=== PATIENT | female | born 1995 | race Caucasian/White ===

== ENCOUNTER 2017-03-15 18:38 | Emergency (ER) | payer OTHER ==
[2017-03-15 18:39] VITALS: BMI 21.4
[2017-03-15 18:52] VITALS: BP 116/72; PULSE 82; RESP 18; TEMP 98.8; O2SAT 97
--- NOTE | 2017-03-15 19:38 | ED PDOC ---
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 Patient states she usually gets a headache every "week to 10 days" for the past 15 years. She says this headache is similar to previous episodes but has lasted longer. She also co swelling upper lip since she tripped and fell on the stairs yesterday and hit her face on a wall. This occurred after her headache had already started. No LOC at that time. Patient denies any fever, chills, nausea, vomiting or other complaints. Patient mentions she sometimes take Ibuprofen for the pain but she tries not to take it so often due to her Hepatitis. HPI and ROS obtain via mushroom packer number [id number]. PMD: Dr. Villa Time/Duration: 24 hours Symptom Onset: Sudden Symptom Course: Unchanged Quality: Other Activities at Onset: Rest Context: Home Past Medical History - Provider Review Nursing Documentation Reviewed: Yes - Infectious Disease Hx of Infectious Diseases: None - Hematological/Oncological Hx Hepatitis C: Yes - Psychiatric Hx Substance Use: No - Surgical History Hx Appendectomy: Yes - Anesthesia Hx Anesthesia: Yes Hx Anesthesia Reactions: No Hx Malignant Hyperthermia: No Family/Social History - Physician Review Nursing Documentation Reviewed: Yes Family/Social History: Unknown Family HX Smoking Status: Never Smoked Hx Alcohol Use: No Hx Substance Use: No Allergies/Home Meds Allergies/Adverse Reactions: Allergies No Known Allergies Allergy (Verified 03/15/17 18:51) Home Medications: Home Meds Medication Instructions Recorded Confirmed No Known Home Med 03/15/17 03/15/17 Review of Systems - Physician Review All systems were reviewed & negative as marked: Yes - Review of Systems Constitutional: absent: Fevers ENT: Other (small abrasion to the inner upper lip) Respiratory: absent: SOB Cardiovascular: absent: Chest Pain Neurological: Headache Physical Exam Vital Signs Reviewed: Yes Vital Signs Temp Pulse Resp BP Pulse Ox 03/15/17 18:48 98.8 F 82 18 116/72 97 Temperature: Afebrile Blood Pressure: Normal Pulse: Regular Respiratory Rate: Normal Appearance: Positive for: Well-Appearing, Non-Toxic, Comfortable Pain Distress: None Mental Status: Positive for: Alert and Oriented X 3 - Systems Exam Head: Present: Atraumatic, Normocephalic Pupils: Present: PERRL Extroacular Muscles: Present: EOMI Conjunctiva: Present: Normal Mouth: Present: Moist Mucous Membranes. No: Normal Lips (superfical abrasion to the mucosal surface of the upper lip with mild swelling) Neck: Present: Normal Range of Motion Respiratory/Chest: Present: Clear to Auscultation, Good Air Exchange. No: Respiratory Distress, Accessory Muscle Use Cardiovascular: Present: Regular Rate and Rhythm, Normal S1, S2. No: Murmurs Abdomen: Present: Normal Bowel Sounds. No: Tenderness, Distention, Peritoneal Signs Back: Present: Normal Inspection Upper Extremity: Present: Normal Inspection. No: Cyanosis, Edema Lower Extremity: Present: Normal Inspection. No: Edema Neurological: Present: GCS=15, CN II-XII Intact, Motor Func Grossly Intact, Normal Sensory Function, Gait Normal Skin: Present: Warm, Dry, Normal Color. No: Rashes Psychiatric: Present: Alert, Oriented x 3 Medical Decision Making ED Course and Treatment: 03/15/17 21:49 the pt reports resolution of her headache. she is comfortable w dc home. follow up and return precautions advised. - Medication Orders Current Medication Orders: Discontinued Medications Diphenhydramine HCl (Benadryl) 50 mg IVP STAT STA Stop: 03/15/17 19:45 Last Admin: 03/15/17 20:23 Dose: 50 mg Sodium Chloride (Sodium Chloride 0.9%) 1,000 mls @ 999 mls/hr IV .Q1H1M STA Stop: 03/15/17 21:25 Last Admin: 03/15/17 20:35 Dose: 999 mls/hr Metoclopramide HCl (Reglan) 10 mg IVP STAT STA Stop: 03/15/17 19:45 Last Admin: 03/15/17 20:23 Dose: 10 mg - Scribe Statement The provider has reviewed the documentation as recorded by the Arturo Abraham Provider Scribe Attestation: All medical record entries made by the Mitaibnoah were at my direction and personally dictated by me. I have reviewed the chart and agree that the record accurately reflects my personal performance of the history, physical exam, medical decision making, and the department course for this patient. I have also personally directed, reviewed, and agree with the discharge instructions and disposition. Disposition/Present on Arrival - Present on Arrival Any Indicators Present on Arrival: No History of DVT/PE: No History of Uncontrolled Diabetes: No Urinary Catheter: No History of Decub. Ulcer: No History Surgical Site Infection Following: None - Disposition Have Diagnosis and Disposition been Completed?: Yes Diagnosis: Headache Disposition: HOME/ ROUTINE Disposition Time: 21:49 Condition: IMPROVED Discharge Instructions (ExitCare): Migraine Headache (ED), Acute Headache (ED) Additional Instructions: Please follow up with your primary doctor in the next week. Return to the ER for any worsening symptoms or for any other concerns. Referrals: Ondina Villa MD [Primary Care Provider] - Follow up with primary
[2017-03-15] MEDS ORDERED: DiphenhydrAMINE 50 mg/ml Inj IVP STA (19:44)
[2017-03-15] MEDS ORDERED: Sodium Chloride 0.9% 1,000 ML IV STA (20:25)
== END 2017-03-15 21:56 | disposition home or self-care (01) ==
LOC: ED 18:38
DX: R51 Headache (principal)
CPT/HCPCS: 96361; 96374; 96375; 99285; J1200; J2765; J7040

== ENCOUNTER 2017-06-27 19:48 | Emergency (ER) | payer SELFPAY ==
[2017-06-27 19:48] VITALS: BMI 21.4
[2017-06-27 20:05] VITALS: RESP 18; TEMP 98.4; O2SAT 100
[2017-06-27] MEDS ORDERED: Sodium Chloride 0.9% 1,000 ML IV STA (20:21)
--- NOTE | 2017-06-27 20:35 | ED PDOC ---
Arrival/HPI - General Chief Complaint: Abdominal Pain Time Seen by Provider: 06/27/17 20:07 Historian: Patient, Family - History of Present Illness Narrative History of Present Illness (Text): 06/27/17 20:32 Pt. to ED PMHX appendectomy,Hepatitis C with c/o right flank discomfort with some radiation to the abdomen.Pt.; with similar episode in the pt. which resolved spontaneously.No c/o of N/V/D. [place] vaginal discharge.No urinary complaints.No fever or chills.Family helped with the translation assisting the pt. who understands but speaks mediocre German. Past Medical History - Provider Review Nursing Documentation Reviewed: Yes - Travel History Have you recently traveled outside [place] w/in the past 3 mons?: No - Infectious Disease Hx of Infectious Diseases: None - Hematological/Oncological Hx Hepatitis C: Yes - Psychiatric Hx Substance Use: No - Surgical History Hx Appendectomy: Yes - Anesthesia Hx Anesthesia: Yes Hx Anesthesia Reactions: No Hx Malignant Hyperthermia: No Family/Social History - Physician Review Nursing Documentation Reviewed: Yes Family/Social History: No Known Family HX Smoking Status: Never Smoked Hx Alcohol Use: No Hx Substance Use: No Allergies/Home Meds Allergies/Adverse Reactions: Allergies No Known Allergies Allergy (Verified 06/27/17 20:01) Home Medications: Home Meds Medication Instructions Recorded Confirmed No Known Home Med 03/15/17 06/27/17 Review of Systems - Review of Systems Constitutional: Normal Eyes: Normal ENT: Normal Respiratory: Normal Cardiovascular: Normal Gastrointestinal: Abdominal Pain Genitourinary Female: Normal Musculoskeletal: Normal Skin: Normal Neurological: Normal Endocrine: Normal Hemo/Lymphatic: Normal Psychiatric: Normal Physical Exam Vital Signs Reviewed: Yes Vital Signs Temp Pulse Resp BP Pulse Ox 06/28/17 02:00 84 18 106/72 100 06/28/17 00:00 76 18 106/77 99 06/27/17 22:00 74 18 112/78 99 06/27/17 20:04 98.4 F 78 18 106/71 100 Temperature: Afebrile Blood Pressure: Normal Pulse: Regular Respiratory Rate: Normal Appearance: Positive for: Well-Appearing, Non-Toxic, Comfortable Pain Distress: None Mental Status: Positive for: Alert and Oriented X 3 - Systems Exam Head: Present: Atraumatic, Normocephalic Pupils: Present: PERRL Extroacular Muscles: Present: EOMI Conjunctiva: Present: Normal Mouth: Present: Moist Mucous Membranes Neck: Present: Normal Range of Motion Respiratory/Chest: Present: Clear to Auscultation, Good Air Exchange. No: Respiratory Distress, Accessory Muscle Use Cardiovascular: Present: Regular Rate and Rhythm, Normal S1, S2. No: Murmurs Abdomen: Present: Normal Bowel Sounds. No: Tenderness, Distention, Peritoneal Signs Genitourinary/Pelvic Exam: Present: Other (Pt refused pelvic exam) Back: Present: Normal Inspection Upper Extremity: Present: Normal Inspection. No: Cyanosis, Edema Lower Extremity: Present: Normal Inspection. No: Edema Neurological: Present: GCS=15, CN II-XII Intact, Speech Normal, Motor Func Grossly Intact, Normal Sensory Function Skin: Present: Warm, Dry, Normal Color. No: Rashes Psychiatric: Present: Alert, Oriented x 3, Normal Insight, Normal Concentration Medical Decision Making ED Course and Treatment: 06/28/17 01:05 Pt refused Transvaginal US, agreed to US Pelvis, transabdominal. US Pelvis shows: Uterus/cervix: Unremarkable in echogenicity and size, measuring 7.8 x 4.9 x 6.0 cm. Normal endometrial stripe thickness, for a patient of this age (measuring 15.4 mm). No myometrial mass. Right ovary: Despite prolonged interrogation, the right ovary was nonvisualized. Left ovary: Despite prolonged interrogation, the left ovary was nonvisualized. Free fluid: Free fluid is identified within the posterior cul-de-sac IMPRESSION: Despite prolonged interrogation, neither ovary was visualized secondary to overlying bowel gas. Free fluid within the posterior cul-de-sac. CT Abdomen and Pelvis ordered. 06/28/17 01:[address] scan. Pt will sign out against medical advice. The patient is choosing to leave against medical advice. I have personally explained to the patient that choosing to do so may result in permanent bodily harm or . I have discussed at great length that without further evaluation and monitoring there may be unforeseen circumstances and/or deterioration causing permanent bodily harm or as a result of their choice. The patient is alert, oriented, and shows the mental capacity to make clear decisions regarding the patients health care at this time. The patient continues to wish to leave against medical advice. In light of the patients decision to leave against medical advice, patient is aware of the importance to following up as instructed. The patient has been advised that they should return to the emergency room immediately if they change their mind at any time, or if their condition begins to change or worsen in any way. - Lab Interpretations Lab Results: 06/27/17 20:40 06/27/17 20:40 Lab Results 06/27/17 20:40: WBC 5.6, RBC 4.40, Hgb 12.1, Hct 36.3, MCV 82.5, MCH 27.5, MCHC 33.3, RDW 12.9, Plt Count 177, MPV 11.3 H 06/27/17 20:40: Sodium 140, Potassium 3.8, Chloride 103, Carbon Dioxide 27, Anion Gap 14, BUN 19, Creatinine 0.7, Est GFR ( Amer) > 60, Est GFR (Non- Af Amer) > 60, Random Glucose 80, Calcium 9.5, Total Bilirubin 0.4, AST 28, ALT 36, Alkaline Phosphatase 49, Total Protein 7.5, Albumin 4.3, Globulin 3.1, Albumin/Globulin Ratio 1.4, Lipase 40 06/27/17 20:30: Urine Color Yellow, Urine Appearance Sl cloudy, Urine pH 7.5, Ur Specific [place] 1.015, Urine Protein Negative, Urine Glucose (UA) Negative, Urine Ketones Negative, Urine Blood Negative, Urine Nitrate Negative, Urine Bilirubin Negative, Urine Urobilinogen 1.0 H, Ur Leukocyte Esterase Negative, Urine HCG, Qual Negative - RAD Interpretation Radiology Orders: 06/28/17 00:04 PELVIS ULTRASOUND [US] Stat - Medication Orders Current Medication Orders: Sodium Chloride (Sodium Chloride 0.9%) 1,000 mls @ 100 mls/hr IV .Q10H LONG Discontinued Medications Home Med (*Refrigerator Open) Confirm Administered Dose 1 unit XX .STK-MED ONE Stop: 06/28/17 05:59 Home Med (*Refrigerator Open) Confirm Administered Dose 1 unit XX .STK-MED ONE Stop: 06/28/17 10:47 Sodium Chloride (Sodium Chloride 0.9%) 1,000 mls @ 999 mls/hr IV .Q1H1M STA Stop: 06/27/17 21:21 Last Admin: 06/27/17 21:21 Dose: 999 mls/hr eMAR Start Stop Document 06/27/17 21:21 BRAD (Rec: 06/28/17 00:17 BRAD [id number]) Intravenous Solution Start Date 06/27/17 Start Time 21:21 End Date 06/27/17 End time 22:21 Total Infusion Time 60 Iohexol (Omnipaque 350 100 Ml) Confirm Administered Dose 350 mg .ROUTE .STK-MED ONE Stop: 06/28/17 01:16 Ketorolac Tromethamine (Toradol) 30 mg IVP ONCE ONE Stop: 06/28/17 00:05 Last Admin: 06/28/17 00:14 Dose: 30 mg MAR Pain Assessment Document 06/28/17 00:14 BRAD (Rec: 06/28/17 00:15 BRAD [id number]) Pain Reassessment Is this a pain reassessment? No IVP Administration Document 06/28/17 00:14 BRAD (Rec: 06/28/17 00:15 BRAD [id number]) Charges for Administration # of IVP Administrations 1 Disposition/Present on Arrival - Present on Arrival Any Indicators Present on Arrival: No History of DVT/PE: No History of Uncontrolled Diabetes: No Urinary Catheter: No History of Decub. Ulcer: No History Surgical Site Infection Following: None - Disposition Have Diagnosis and Disposition been Completed?: Yes Diagnosis: Abdominal pain Disposition: AGAINST MEDICAL ADVICE Disposition Time: 02:03 Patient Problems: Current Active Problems Problem Status Onset Abdominal pain Acute Condition: STABLE Referrals: Ondina Villa MD [Primary Care Provider] - Follow up with primary Forms: [place] (German)
[2017-06-27 20:50] LABS: HEMATOCRIT 36.3 % (36.0-48.0); MEAN CELL VOLUME 82.5 fl (80.0-105.0); MEAN CORPUSCULAR HEMOGLOBIN 27.5 pg (25.0-35.0); MEAN CORPUSCULAR HGB CONC 33.3 g/dl (31.0-37.0); MEAN PLATELET VOLUME 11.3 fl (7.0-11.0); RED CELL DISTRIBUTION WIDTH 12.9 % (11.5-14.5); WHITE BLOOD COUNT 5.6 10^3/ul (4.5-11.0)
[2017-06-27 20:51] LABS: PH,URINE 7.5 (4.7-8.0); URINE BILIRUBIN NEGATIVE (NEGATIVE); URINE BLOOD NEGATIVE (NEGATIVE); URINE GLUCOSE (UA) NEGATIVE (NEGATIVE); URINE KETONE NEGATIVE (NEGATIVE); URINE LEUKOCYTE ESTERASE NEGATIVE Leu/uL (NEGATIVE); URINE PROTEIN NEGATIVE mg/dL (<30 mg/dL)
[2017-06-27 20:53] LABS: URINE APPEARANCE SL CLOUDY (CLEAR); URINE COLOR YELLOW (YELLOW)
[2017-06-27 20:56] LABS: ALB/GLOB RATIO 1.4 (1.1-1.8); ALKALINE PHOSPHATASE 49 U/L (38-126); ALT/SGPT 36 U/L (7-56); AST/SGOT 28 U/L (14-36); BILIRUBIN,TOTAL 0.4 mg/dL (0.2-1.3); BLOOD UREA NITROGEN 19 mg/dL (7-21); CALCIUM 9.5 mg/dL (8.4-10.5); CARBON DIOXIDE 27 mmol/L (21-33); CHLORIDE 103 mmol/L (98-107); GFR AFRICAN-AMERICAN > 60; GLUCOSE,RANDOM 80 mg/dL (70-110); LIPASE 40 U/L (23-300); POTASSIUM 3.8 mmol/L (3.6-5.0); SODIUM 140 mmol/L (132-148); TOTAL PROTEIN 7.5 g/dL (5.8-8.3)
--- NOTE | 2017-06-28 01:08 | US ---
EXAM: US Pelvis Complete, Transabdominal CLINICAL HISTORY: 22 years old, female; Pain; Pelvic pain TECHNIQUE: Real-time transabdominal pelvic ultrasound (complete) with image documentation. COMPARISON: CT - ABD PELVIS IV CONTRAST ONLY 03/21/2016 11:38:30 PM FINDINGS: Uterus/cervix: Unremarkable in echogenicity and size, measuring 7.8 x 4.9 x 6.0 cm. Normal endometrial stripe thickness, for a patient of this age (measuring 15.4 mm). No myometrial mass. Right ovary: Despite prolonged interrogation, the right ovary was nonvisualized. Left ovary: Despite prolonged interrogation, the left ovary was nonvisualized. Free fluid: Free fluid is identified within the posterior cul-de-sac IMPRESSION: Despite prolonged interrogation, neither ovary was visualized secondary to overlying bowel gas. Free fluid within the posterior cul-de-sac.
[2017-06-28] MEDS ORDERED: Sodium Chloride 0.9% 1,000 ML IV SCH (01:15)
[2017-06-28] MEDS ORDERED: Iohexol 350 MG/100 ML VIAL ONE (01:15)
[2017-06-28 02:05] VITALS: BP 106/72; PULSE 84
== END 2017-06-27 20:30 | disposition left against medical advice (07) ==
LOC: ED 19:48
DX: R10.9 Unspecified abdominal pain (principal); B19.20 Unspecified viral hepatitis C without hepatic coma
CPT/HCPCS: 80053; 81003; 83690; 84703; 85027; 96360; 99283; J7040

== ENCOUNTER 2018-05-14 22:14 | Emergency (ER) | payer MEDICAID, OTHER ==
[2018-05-14 22:14] VITALS: BMI 21.4
--- NOTE | 2018-05-14 23:00 | ED PDOC ---
Arrival/HPI <Gustabo Ceballos - Last Filed: 05/14/18 23:50> - History of Present Illness Time/Duration: 4-6 hours Symptom Onset: Sudden Symptom Course: Intermittent Quality: Burning Severity Level: 7 Activities at Onset: Rest <Emir Persaud - Last Filed: 05/15/18 06:55> - General Chief Complaint: Lower Extremity Problem/Injury Time Seen by Provider: 05/14/18 22:14 - History of Present Illness Narrative History of Present Illness (Text): 05/14/18 22:47 PGY-[address] Ceballos Pt is a 23 year old female who presents with acute onset pain of the R knee. Pt states that she was sitting down at 4pm today when she noticed sudden onset of burning pain on the medial aspect of her R knee. Her pain is currently a 7/ 10 and was 10/10 at its worst, and the pain has fluctuated in severity since onset. The patient states she was not doing any physical activities before or at the time of the onset of this pain. She is able to weight-bear but has pain with flexion/extension of the knee. She denies any recent trauma or injuries. The patient states she is not active and does not work. She also complains of a headache in a band across the front of her head for the same period of time, states she frequently gets headaches and this is similar to headaches she has had in the past. The patient denies any fevers or chills. Patient presented to ED with family who served as translators. 05/15/18 00:02 (Emir Persaud) Past Medical History - Provider Review Nursing Documentation Reviewed: Yes - Infectious Disease Hx of Infectious Diseases: None - Hematological/Oncological Hx Hepatitis C: Yes - Psychiatric Hx Substance Use: No - Surgical History Hx Appendectomy: Yes - Anesthesia Hx Anesthesia: Yes Hx Anesthesia Reactions: No Hx Malignant Hyperthermia: No <Emir Persaud - Last Filed: 05/15/18 06:55> Family/Social History - Physician Review Nursing Documentation Reviewed: Yes Family/Social History: No Known Family HX Smoking Status: Never Smoked Hx Alcohol Use: No Hx Substance Use: No <Emir Persaud - Last Filed: 05/15/18 06:55> Allergies/Home Meds <Gustabo Ceballos - Last Filed: 05/14/18 23:50> <HungEmir - Last Filed: 05/15/18 06:55> Allergies/Adverse Reactions: Allergies No Known Allergies Allergy (Verified 05/14/18 22:23) Review of Systems - Physician Review All systems were reviewed & negative as marked: Yes - Review of Systems Constitutional: Normal. absent: Fatigue, Fevers Eyes: Normal. absent: Vision Changes, Photophobia ENT: absent: Sore Throat, Rhinorrhea Respiratory: Normal. absent: SOB, Cough Cardiovascular: Normal. absent: Chest Pain, Palpitations Gastrointestinal: Normal. absent: Abdominal Pain, Nausea, Vomiting Genitourinary Female: absent: Dysuria, Frequency Musculoskeletal: Arthralgias, Joint Swelling, Other (+medial knee pain). absent : Back Pain, Neck Pain Skin: Normal. absent: Rash, Pruritis, Skin Lesions, Laceration Neurological: Headache. absent: Dizziness, Focal Weakness <AlvashaqEmir - Last Filed: 05/15/18 06:55> Physical Exam Vital Signs Reviewed: Yes Temperature: Afebrile Blood Pressure: Normal Pulse: Regular Respiratory Rate: Normal Appearance: Positive for: Non-Toxic, Uncomfortable Pain Distress: Moderate Mental Status: Positive for: Alert and Oriented X 3 - Systems Exam Head: Present: Atraumatic, Normocephalic Pupils: Present: PERRL Extroacular Muscles: Present: EOMI Conjunctiva: Present: Normal Mouth: Present: Moist Mucous Membranes Pharnyx: Present: Normal. No: ERYTHEMA, EXUDATE Nose (External): Present: Atraumatic Neck: Present: Normal Range of Motion. No: JVD Respiratory/Chest: Present: Clear to Auscultation, Good Air Exchange. No: Respiratory Distress, Accessory Muscle Use Cardiovascular: Present: Regular Rate and Rhythm, Normal S1, S2. No: Murmurs Abdomen: Present: Normal Bowel Sounds. No: Tenderness, Distention Upper Extremity: Present: Normal Inspection. No: Cyanosis, Edema Lower Extremity: Present: NORMAL PULSES, Normal ROM, Tenderness (+Reproducible point tenderness on medial aspect R knee), Temperature Abnormalties (+knee warmth to touch). No: Cyanosis, Swelling, Erythema Neurological: Present: GCS=15, CN II-XII Intact, Speech Normal Skin: Present: Warm, Dry, Normal Color. No: Rashes Psychiatric: Present: Alert, Oriented x 3, Normal Insight <Emir Persaud - Last Filed: 05/15/18 06:55> Vital Signs Temp Pulse Resp BP Pulse Ox 05/15/18 03:38 97.8 F 72 18 122/76 98 05/14/18 22:28 98.6 F 75 16 113/72 100 Medical Decision Making <Gustabo Ceballos - Last Filed: 05/14/18 23:50> - Lab Interpretations I have reviewed the lab results: Yes - RAD Interpretation Master Carpenter: Radiologist <Emir Persaud - Last Filed: 05/15/18 06:55> ED Course and Treatment: Impression: Pt seen and evaluated with bilingual medical receptionist. Aware and agree with HPI, clinical findings, plan, and management. Pt presented with sudden onset of right knee pain today and headache. Pt denies any trauma. Plan: -- XR Knee -- Tylenol -- Reassess and disposition (Gustabo Ceballos) Knee pain, ML sprain/strain. Rule out fracture, infection * Knee X-ray 3-view * Tylenol 650 PO Q4 prn 05/14/18 23:07 * RLE doppler US * CBC, CMP, Uric acid 05/15/18 00:05 (Emir Persaud) - Lab Interpretations Narrative Lab Interpretation (Text): 05/15/18 03:11 Labs reviewed, no acute lab abnormalities, uric acid WNL (Emir Persaud) Lab Results: 05/15/18 02:00 05/15/18 02:00 Lab Results 05/15/18 02:00: Sodium 142, Potassium 3.6, Chloride 106, Carbon Dioxide 25, Anion Gap 15, BUN 8, Creatinine 0.6 L, Est GFR ( Amer) > 60, Est GFR (Non -Af Amer) > 60, Random Glucose 109, Uric Acid 3.9, Calcium 9.7, Total Bilirubin 0.4, AST 20, ALT 24, Alkaline Phosphatase 51, Total Protein 7.7, Albumin 4.3, Globulin 3.4, Albumin/Globulin Ratio 1.3 05/15/18 02:00: WBC 6.4 D, RBC 4.55, Hgb 12.6, Hct 36.9, MCV 81.1, MCH 27.7, MCHC 34.1, RDW 12.7, Plt Count 187, MPV 11.5 H, Gran % 38.0 L, Lymph % (Auto) 47.6 H, [place] % (Auto) 8.6 H, Eos % (Auto) 5.3 H, Baso % (Auto) 0.5, Gran # 2.45 , Lymph # (Auto) 3.1, [place] # (Auto) 0.6, Eos # (Auto) 0.3, Baso # (Auto) 0.03 - RAD Interpretation Narrative RAD Interpretations (Text): R Knee XR negative for acute pathologies 05/15/18 01:15 RLE venous doppler US negative for DVT (Emir Persaud) Radiology Orders: 05/14/18 22:43 KNEE W PATELLA RIGHT 3 VIEW [RAD] Stat 05/15/18 00:33 DUPLEX LOWER EXTRM VEIN RIGHT [US] Stat - Medication Orders Current Medication Orders: Discontinued Medications Acetaminophen (Tylenol 325mg Tab) 650 mg PO Q4 PRN PRN Reason: Fever >100.4 F Last Admin: 05/14/18 23:01 Dose: 650 mg MAR Pain/Vitals Document 05/14/18 23:01 RE (Rec: 05/14/18 23:01 RE [place] [id number]) Pain Reassessment Is This A Pain ReAssessment? No Sleep Is patient sleeping during reassessment? No Presence of Pain Presence of Pain Yes Pain Scale Used Pain Scale Used Numeric Location Left, Right or Bilateral Right Pain Location Body Site Knee Description Acute Ibuprofen (Motrin Tab) 200 mg PO STAT STA Stop: 05/15/18 03:10 Last Admin: 05/15/18 03:32 Dose: 200 mg MAR Pain/Vitals Document 05/15/18 03:32 RE (Rec: 05/15/18 03:32 RE [place] [id number]) Pain Reassessment Is This A Pain ReAssessment? No Sleep Is patient sleeping during reassessment? No Presence of Pain Presence of Pain Yes Pain Scale Used Pain Scale Used Numeric - PA / CERTIFIED NURSING ASSISTANT INSTRUCTOR / Resident Statement / has reviewed & agrees with the documentation as recorded. / has examined the patient and agrees with the treatment plan. <Gustabo Ceballos - Last Filed: 05/14/18 23:50> Disposition/Present on Arrival <Gustabo Ceballos - Last Filed: 05/14/18 23:50> - Present on Arrival Any Indicators Present on Arrival: No History of DVT/PE: No History of Uncontrolled Diabetes: No Urinary Catheter: No History of Decub. Ulcer: No History Surgical Site Infection Following: None - Disposition Have Diagnosis and Disposition been Completed?: Yes Disposition Time: 02:56 <Emir Persaud - Last Filed: 05/15/18 06:55> - Disposition Diagnosis: Knee sprain, Knee pain Disposition: HOME/ ROUTINE Condition: STABLE Discharge Instructions (ExitCare): Knee Sprain (DC), Knee Pain (DC) Additional Instructions: Rest, refrain from overly strenuous activity, apply ice Prescriptions: Ibuprofen [Motrin Tab] 200 mg PO Q4 7 Days #30 tab Referrals: Ondina Villa MD [Primary Care Provider] - Follow up with primary [facility] [Outside] - Follow up with primary Osmany Stone DO [Staff Provider] - Follow up with primary Forms: [employer] (Luxembourgish)
[2018-05-15 02:44] LABS: BASO # 0.03 K/mm3 (0.0-2.0); BASO % 0.5 % (0.0-3.0); EOS # 0.3 (0.0-0.7); EOS % 5.3 % (1.5-5.0); GRAN # 2.45 (1.4-6.5); HEMOGLOBIN 12.6 g/dL (12.0-16.0); LYMPH # 3.1 (1.2-3.4); LYMPH % 47.6 % (22.0-35.0); MEAN CELL VOLUME 81.1 fl (80.0-105.0); MEAN CORPUSCULAR HEMOGLOBIN 27.7 pg (25.0-35.0); MEAN CORPUSCULAR HGB CONC 34.1 g/dl (31.0-37.0); MEAN PLATELET VOLUME 11.5 fl (7.0-11.0); MONO # 0.6 (0.1-0.6); MONO % 8.6 % (1.0-6.0); RBC 4.55 10^6/uL (3.5-6.1); RED CELL DISTRIBUTION WIDTH 12.7 % (11.5-14.5); WHITE BLOOD COUNT 6.4 10^3/ul (4.5-11.0)
[2018-05-15 02:53] LABS: ALB/GLOB RATIO 1.3 (1.1-1.8); ALBUMIN 4.3 g/dL (3.0-4.8); ALT/SGPT 24 U/L (7-56); AST/SGOT 20 U/L (14-36); BLOOD UREA NITROGEN 8 mg/dL (7-21); CALCIUM 9.7 mg/dL (8.4-10.5); GFR AFRICAN-AMERICAN > 60; GFR NON-AFRICAN AMERICAN > 60; URIC ACID 3.9 mg/dL (2.5-6.2)
[2018-05-15 03:39] VITALS: BP 122/76; PULSE 72; RESP 18; TEMP 97.8; O2SAT 98
--- NOTE | 2018-05-15 12:06 | RAD ---
Date of service: 05/14/2018 PROCEDURE: Right Knee Radiographs. HISTORY: medial knee pain COMPARISON: None. FINDINGS: BONES: Normal. No fracture. Note made of what may represent small osteoma or bone island within the distal right lateral femoral condyles. JOINTS: Normal. No osteoarthritis. JOINT EFFUSION: Trace joint effusion suspected OTHER FINDINGS: None. IMPRESSION: No evidence of acute displaced fracture nor dislocation.
--- NOTE | 2018-05-15 18:47 | US ---
PROCEDURE: Right lower extremity venous US HISTORY: Leg pain and swelling. Evaluate for DVT. PHYSICIAN(S): Timbo Paul M.D. TECHNIQUE: Duplex sonography and color-flow Doppler with graded compression were used to evaluate the deep venous system of the right lower extremity. FINDINGS: The visualized deep venous system of the right lower extremity is sonographically normal and compressible. Normal waveforms and augmentation are seen. There is no sonographic evidence for deep venous thrombosis in the visualized segments of the right lower extremity. IMPRESSION: 1. No sonographic evidence for deep venous thrombosis in the visualized segments of the right lower extremity.
== END 2018-05-15 03:38 | disposition home or self-care (01) ==
LOC: ED 22:14
DX: S83.91XA Sprain of unspecified site of right knee, initial encounter (principal); X58.XXXA Exposure to other specified factors, initial encounter; Y92.9 Unspecified place or not applicable; M25.561 Pain in right knee

== ENCOUNTER 2019-01-23 08:30 | Emergency (ER) | payer MEDICAID, OTHER ==
[2019-01-23 08:32] VITALS: BMI 22.6
[2019-01-23 08:39] VITALS: BP 121/84; PULSE 90; RESP 19; TEMP 98.2; O2SAT 98
--- NOTE | 2019-01-23 08:56 | ED PDOC ---
Arrival/HPI - General Chief Complaint: Back Pain Time Seen by Provider: 01/23/19 08:32 Historian: Patient - History of Present Illness Narrative History of Present Illness (Text): 01/23/19 08:52 23 year old female, whose past medical history includes heapatitis C and hyperlipidemia, who presents to the emergency department complaining of right sided neck pain onset earlier today. Patient reports pain began when she woke up tis morning. She denies any fever, headaches, trauma, chest pain, or any other somatic complaints. PMD: Daisy Nj M.D Time/Duration: 24 hours Symptom Onset: Sudden Symptom Course: Unchanged Activities at Onset: Light Context: Home Past Medical History - Provider Review Nursing Documentation Reviewed: Yes - Infectious Disease Hx of Infectious Diseases: None - Hematological/Oncological Hx Hepatitis C: Yes - Psychiatric Hx Substance Use: No - Surgical History Hx Appendectomy: Yes - Anesthesia Hx Anesthesia: Yes Hx Anesthesia Reactions: No Hx Malignant Hyperthermia: No Family/Social History - Physician Review Nursing Documentation Reviewed: Yes Family/Social History: Unknown Family HX Smoking Status: Never Smoked Hx Alcohol Use: No Hx Substance Use: No Allergies/Home Meds Allergies/Adverse Reactions: Allergies No Known Allergies Allergy (Verified 01/23/19 08:51) Home Medications: Home Meds Medication Instructions Recorded Confirmed Simvastatin [Zocor] 40 mg PO DAILY 01/23/19 01/23/19 Review of Systems - Physician Review All systems were reviewed & negative as marked: Yes - Review of Systems Constitutional: absent: Fevers Respiratory: absent: SOB, Cough Cardiovascular: absent: Chest Pain Gastrointestinal: absent: Abdominal Pain, Nausea, Vomiting Musculoskeletal: Neck Pain (right sided). absent: Back Pain Neurological: absent: Headache, Dizziness Physical Exam Vital Signs Reviewed: Yes Vital Signs Temp Pulse Resp BP Pulse Ox 01/23/19 08:39 98.2 F 90 19 121/84 98 Temperature: Afebrile Blood Pressure: Normal Pulse: Regular Respiratory Rate: Normal Appearance: Positive for: Well-Appearing, Non-Toxic, Comfortable Pain Distress: None Mental Status: Positive for: Alert and Oriented X 3 - Systems Exam Head: Present: Atraumatic, Normocephalic Pupils: Present: PERRL Extroacular Muscles: Present: EOMI Conjunctiva: Present: Normal Mouth: Present: Moist Mucous Membranes Neck: Present: Normal Range of Motion, Other (+right paracervical tenderness.) Respiratory/Chest: Present: Clear to Auscultation, Good Air Exchange. No: Respiratory Distress, Accessory Muscle Use Cardiovascular: Present: Regular Rate and Rhythm, Normal S1, S2. No: Murmurs Abdomen: No: Tenderness, Distention, Peritoneal Signs Back: Present: Normal Inspection Upper Extremity: Present: Normal Inspection. No: Cyanosis, Edema Lower Extremity: Present: Normal Inspection. No: Edema Neurological: Present: GCS=15, CN II-XII Intact, Speech Normal Skin: Present: Warm, Dry, Normal Color. No: Rashes Psychiatric: Present: Alert, Oriented x 3, Normal Insight, Normal Concentration Medical Decision Making ED Course and Treatment: 01/23/19 08:50 Impression: 23 year old female presents to the emergency department complaining of right sided neck pain. Differential Diagnosis included but are not limited to: Plan: -- Flexeril -- Toradol -- Urine preg test -- Reassess and disposition Prior Visits: Notes and results from previous visits were reviewed. Progress Notes: 01/23/19 14:40 exam consistent with toricoliis. no direct trauma. no indication for imaging - Scribe Statement The provider has reviewed the documentation as recorded by the Scribe Seble Montalvo All medical record entries made by the Scribe were at my direction and personally dictated by me. I have reviewed the chart and agree that the record accurately reflects my personal performance of the history, physical exam, medical decision making, and the department course for this patient. I have also personally directed, reviewed, and agree with the discharge instructions and disposition. Disposition/Present on Arrival - Present on Arrival Any Indicators Present on Arrival: No History of DVT/PE: No History of Uncontrolled Diabetes: No Urinary Catheter: No History Surgical Site Infection Following: None - Disposition Have Diagnosis and Disposition been Completed?: Yes Diagnosis: Neck pain Disposition: HOME/ ROUTINE Disposition Time: 08:30 Condition: STABLE Discharge Instructions (ExitCare): Neck Pain Additional Instructions: return to er with worsening. Prescriptions: Cyclobenzaprine [Cyclobenzaprine HCl] 10 mg PO DAILY PRN #10 tab PRN Reason: Muscle Spasm Naproxen 500 mg PO BID PRN #14 tab PRN Reason: Pain, Mild (1-3) Referrals: Ondina Villa MD [Primary Care Provider] - Follow up with primary Forms: [employer] (Malay)
== END 2019-01-23 09:37 | disposition home or self-care (01) ==
LOC: ED 08:30
DX: M54.2 Cervicalgia (principal); E78.5 Hyperlipidemia, unspecified
CPT/HCPCS: 81025; 96372; 99282; J1885